=== PATIENT | female | born 1935 | race Caucasian/White ===

== ENCOUNTER → 2016-10-15 | Day surgery (SDC) | payer MEDICARE, BC ==
[~2016-10-15] MED LIST: ALEVE; ALEVE PO; ALEVE220 M1 PO; ALL DAY ALLERGY10 M3 PO; AMLODIPINE BESYL5 MG PO; ASPIRIN81 MG PO; BENZONATATE PO; CARBATROL200 MG PO; COLACE PO; COREG PO; COUMADIN PO; COUMADIN4 MG PO; DOC-Q-LACE100 MG PO; FLONASE 0.05% N16 G1; FLUOXETINE HCL20 M1 PO; HYDRALAZINE HC100 MG PO; HYDRALAZINE HCL25 MG PO; HYDRALAZINE HCL50 MG PO; ISOSORBIDE DINI30 MG PO; LASIX PO; LASIX20 MG PO; LEVOFLOXACIN500 MG PO; LISINOPRIL PO; LISINOPRIL20 MG PO; LOPRESSOR PO; LOSARTAN POTASS50 MG PO; MEGESTROL ACETA40 MG PO; METOPROLOL SUCC25 MG PO; NAPROXEN PO; NEURONTIN PO; NEURONTIN600 MG PO; NORVASC PO; OMEPRAZOLE40 M1 PO; PATIENT'S PHARMACY; PLENDIL PO; POTASSIUM CHLO10 ME1 PO; PRILOSEC40 MG PO; PRINIVIL20 M1 PO; PROZAC PO; REMERON15 MG PO; SIMVASTATIN20 MG PO; TEGRETOL PO; TYLENOL325 M1 PO; WELLBUTRIN SR PO; ZESTRIL40 MG PO
--- NOTE | ~2016-10-15 | OR ---
Unit #: [id number] #: [id number] Patient: TRACY MOLINA [id number] [facility]. [place], [place] [address] [id number] O MR#: [id number] NAME: TRACY MOLINA ROOM: Date of Procedure: 10/15/2016 Admission Date: 10/15/2016 Surgeon: Filippo Cummings M.D. : 1935 Attending Physician: Filippo Cummings M.D. Primary Care Physician: Ene Alcazar M.D. OPERATIVE REPORT PROCEDURES PERFORMED Upper endoscopy and colonoscopy to cecum. INDICATIONS FOR PROCEDURE The patient with history of esophageal cancer, status post gastric pull-through, now with iron-deficiency anemia, undergoing evaluation with upper endoscopy and colonoscopy looking for source of bleeding. MEDICATIONS Monitored anesthesia. POSTOPERATIVE FINDINGS 1. Previous anastomosis in the midesophagus area, appears to be normal, minimal inflammation seen. History of esophagitis. No recurrent growth was seen. 2. Normal stomach. 3. Normal duodenum and distal duodenum. 4. Mild diverticulosis, but no polyps, masses, AVMs or other bleeding lesions were seen. PLAN Continue with symptomatic treatment. Watch H and H over a period of time. DESCRIPTION OF PROCEDURE The patient was explained of the procedure, risks, and benefits along with risks and benefits of anesthesia. She was brought to the endoscopy room. Propofol anesthesia was given. Bite block was placed. The scope was passed down the mouth into the esophagus, stomach, duodenum, and distal duodenum. Findings as described. No biopsies were taken. Gently, I pulled the scope out the patient's mouth. At this time, she was turned around and repositioned for colonoscopy. Rectal exam was done, which was normal. Colonoscope was lubricated, passed up the rectum, advanced under direct vision all the way to the cecum. Cecum was identified by ileocecal valve and appendiceal orifice. No polyps, masses, or AVMs were seen. I retroflexed in the rectum, small hemorrhoids were seen. The scope was gently pulled out. She tolerated it well. Dictated by... Filippo Cummings M.D. Unit #: [id number] #: [id number] Patient: TRACY MOLINA PAULO/chavo TD: 10/15/2016 19:59 JOB #: [id number] OPERATIVE REPORT Page 1 of 1 X Filippo Cummings MD PROCEDURE OPERATIVE NOTE
[2016-10-15 09:24] LABS: INR 1.1; PARTIAL THROMBOPLASTIN TIME 28.3 SECONDS (23.5-31.3); PROTHROMBIN TIME (PATIENT) 11.4 SECONDS (10.0-11.7)
== END | disposition home or self-care (01) ==
LOC: COPS 10-02 11:00
PROVIDERS: Internal Medicine
DX: D50.9 Iron deficiency anemia, unspecified (principal); K57.30 Diverticulosis of large intestine without perforation or abscess without bleeding; K64.9 Unspecified hemorrhoids; K20.9 Esophagitis, unspecified; K21.9 Gastro-esophageal reflux disease without esophagitis; I10 Essential (primary) hypertension; M19.90 Unspecified osteoarthritis, unspecified site; Z85.01 Personal history of malignant neoplasm of esophagus; Z87.01 Personal history of pneumonia (recurrent); Z88.1 Allergy status to other antibiotic agents; Z87.19 Personal history of other diseases of the digestive system; Z79.01 Long term (current) use of anticoagulants; Z79.899 Other long term (current) drug therapy; Z90.49 Acquired absence of other specified parts of digestive tract; Z90.710 Acquired absence of both cervix and uterus
CPT/HCPCS: 85610; 85730